=== PATIENT | female | born 1960 | race African-American/Black ===

== ENCOUNTER 2020-12-16 02:51 | Emergency (ER) | payer MEDICARE ==
[~2020-12-16] VITALS: Ht 162.6 cm; Wt 72.6 kg
[~2020-12-16 02:51] MED LIST: DARVOCET-N 1001 EACH PO; MULTIVITAMINS
[2020-12-16] MEDS ORDERED: MEDROLDOSEPACK PO (05:09)
[2020-12-16] MEDS ORDERED: HYDROCODON-ACE1 EAC8 PO (05:09)
[2020-12-16] MEDS ORDERED: FLEXERIL PO (05:09)
[2020-12-16 05:15] VITALS: BP 149/73
--- NOTE | 2020-12-18 13:28 | EKG ---
[place] [address] ELECTROCARDIOGRAM REPORT Name: RYANN HERNÁNDEZMONET GOSSE Room: [facility]#: [id number] Admission: 12/16/20 Attend Phys: Discharge: 12/16/20 Date of : 58 Date of Service: 12/16/20 0259 Report #: [id number] THIS REPORT FOR: //name// [facility] ED Test Date: 2020-12-16 Test Time: 02:59:04 Pat Name: SUZANNE HERNÁNDEZ Department: Room: Gender: F Manager Animation: DT : 1960 Requested By: Stephanie Dasilva Order Number: [id number] Carole MD: Alec Jeffries Measurements Intervals [place] Rate: 55 P: 56 RI: 147 QRS: -9 QRSD: 97 T: 26 QT: 474 QTc: 454 Interpretive Statements Sinus bradycardia Probable left ventricular hypertrophy Borderline T abnormalities, anterior leads No previous ECG available for comparison Electronically Signed On 12-18-2020 13:28:33 CDT by Alec Jeffries [email or web address] <ELECTRONICALLY SIGNED> By: Alec Jeffries MD, [facility] 12/18/20 1328 0259 0259 Alec Jeffries MD, [facility] /EPI
== END 2020-12-16 05:15 | disposition home or self-care (01) ==
LOC: M.ERS 02:51
DX: M54.12 Radiculopathy, cervical region (principal); M25.512 Pain in left shoulder; M25.552 Pain in left hip; Z88.5 Allergy status to narcotic agent; Z88.1 Allergy status to other antibiotic agents; Z88.2 Allergy status to sulfonamides